=== PATIENT | female | born 1935 | race Caucasian/White ===

== ENCOUNTER 2018-01-22 13:06 | Emergency (ER) | payer MEDICARE, OTHER ==
[2018-01-22] MEDS ORDERED: Lidocaine/EPINEPHrine/Tetracaine Soln 1 ML TOP ONE (13:11)
--- NOTE | 2018-01-22 13:52 | CT ---
CT cervical spine Technique: Multiple axial sections through the cervical spine were obtained. Study was obtained from above C1 inferiorly to the bottom of T2. Reconstructed sagittal and coronal images were reviewed. Findings: Degenerative apophyseal change is seen most severe on the left side which is noted diffusely throughout the cervical spine. Mild disc space narrowing is noted at C3-C4, C4-C5 and C5-C6. Calcification is noted within the anterior annulus at C5-C6 which is felt to be degenerative in etiology. Vertebral bodies and posterior arches are intact. No fracture is seen. No bony central canal stenosis is noted. Slight bony spurring is noted into the neural foramina at C4-C5 and C5-C6 on the left side. Neural foramina are otherwise patent. No abnormal subluxation is seen. Impression: 1. Degenerative change as noted above. Nothing acute is appreciated on CT study of the cervical spine. Diagnostic code #2
--- NOTE | 2018-01-22 13:55 | CT ---
Head CT Technique: Multiple axial sections through the brain were obtained. Intravenous contrast was not utilized. Findings: Soft tissue swelling and soft tissue hematoma is noted within the posterior left frontal scalp. No underlying calvarial abnormality is seen. 2 small areas of hemorrhage are identified within the extra-axial space within the posterior right parietal region measuring 7 mm and 4 mm in size. No other areas of hemorrhage are seen within the brain parenchyma. Mild diminished density is noted within the periventricular white matter compatible with small vessel ischemic demyelination change. Ventricles along with basal cisterns and sulci over the convexities are mildly prominent. Visualized sinuses shows mucosal thickening inferiorly on the right side within the maxillary sinus. Impression: 1. 2 small areas of extra-axial hemorrhage within the posterior right parietal region measuring 7 mm and 4 mm. 2. Soft tissue swelling and hematoma within left posterior frontal scalp. 3. No other acute abnormality is seen. Diagnostic code #3
--- NOTE | 2018-01-22 15:04 | EDM.PDOC ---
ED HPI GENERAL MEDICAL PROBLEM - General Chief Complaint: Head Injury Stated Complaint: [facility] Time Seen by Provider: 01/22/18 13:13 Source of Information: Reports: Patient, EMS History Limitations: Reports: No Limitations - History of Present Illness INITIAL COMMENTS - FREE TEXT/NARRATIVE: The patient was in [place] and she was walking her dogs and she got her legs caught up in the leashes and she tripped and fell. She had no LOC but she did have a laceration to the left side of her head with edema. She denies a headache and she has no neck pain. She has no chest pain, shortness of breath, abdominal pain, nausea or vomiting. She has no numbness or weakness. Her tetanus is up to date. Onset: Sudden Duration: Minutes: Location: Reports: Head Improves with: Reports: None Worsens with: Reports: None Context: Reports: Activity (Her dogs tripped her) Associated Symptoms: Reports: No Other Symptoms Treatments SPECIAL CERTIFICATE DICTATOR: Reports: Cervical Collar Head Pain Score (Numeric/FACES): 1 - Related Data Allergies Allergy/AdvReac Type Severity Reaction Status Date / Time No Known Allergies Allergy Verified 01/22/18 13:36 Home Meds: Home Meds Aspirin [Halfprin] 81 mg PO DAILY 01/22/18 [History] Lisinopril 20 mg PO BID 01/22/18 [History] Past Medical History - Past Health History Medical/Surgical History: Denies Medical/Surgical History Social & Family History - Tobacco Use Smoking Status *Q: Never Smoker ED ROS GENERAL - Review of Systems Review Of Systems: See Below Constitutional: Reports: No Symptoms HEENT: Reports: Other (Laceration to the left side of her head) Respiratory: Reports: No Symptoms Cardiovascular: Reports: No Symptoms Endocrine: Reports: No Symptoms GI/Abdominal: Reports: No Symptoms : Reports: No Symptoms Musculoskeletal: Reports: No Symptoms ED EXAM, HEAD INJURY - Physical Exam Exam: See Below Exam Limited By: No Limitations General Appearance: Alert, No Apparent Distress Head: Other (Moderate amount of edema to the left side of the head with a laceration) Eyes: Bilateral Eye: EOMI Ears: Normal External Exam Nose: Normal Inspection Neck: Non-Tender, Normal Alignment, Normal Inspection Respiratory: No Respiratory Distress, Lungs Clear, Normal Breath Sounds ( ) Cardiovascular: Regular Rate, Rhythm, No Edema, No Murmur GI/Abdominal Exam: Soft, Non-Tender, No Organomegaly, No Mass Back Exam: Normal Inspection Extremities: Normal Inspection Neurologic: No Motor/Sensory Deficits, Alert, Oriented x 3 ED LACERATION/WOUND & PEDRO PROC - Laceration/Wound Repair Left Head Lac/wound length in cm: 2 Appearance: Subcutaneous, Stellate, Irregular Anesthetic Type: Topical (LET) Skin Prep: Saline Exploration/Debridement/Repair: Wound Explored, In a Bloodless Field, Explored to Base Closed with: Sutures Suture Size: 3-0 Suture Type: Interrupted, Simple, Other (Vicryl) Tetanus Status Addressed: Yes Complications: No Course - Vital Signs Last Recorded V/S: Last Vital Signs Temp 98.0 F 01/22/18 13:36 Pulse 101 H 01/22/18 13:36 Resp 18 01/22/18 13:36 BP 174/94 H 01/22/18 13:36 Pulse Ox 96 01/22/18 13:36 - Orders/Labs/Meds Meds: Medications Discontinued Medications Generic Name Dose Route Start Last Admin Trade Name Freq PRN Reason Stop Dose Admin Lidocaine/Tetracaine 2 ml 01/22/18 13:11 01/22/18 14:49 Let Soln TOP 01/22/18 13:12 2 ml ONETIME ONE Administration - Re-Assessments/Exams Free Text/Narrative Re-Assessment/Exam: 01/22/18 15:19 The patient had a c-collar on. I ordered a CT of her head and cervical spine. The CT of her head shows 2small areas of extra-axial hemorrhage within the posterior right parietal region measuring 7mm and 4mm. Soft tissue swelling and hematoma with left posterior frontal scalp. No other acute abnormality is seen. I called the neurosurgeon front office java developer at [facility] Dr Pope and he did not think there would be anything surgical to be done. I will suture her head laceration and discharge her home Departure - Departure Time of Disposition: 15:35 Disposition: Home, Self-Care 01 Condition: Good Clinical Impression: Laceration of scalp Qualifiers: Encounter type: initial encounter Qualified Code(s): S01.01XA - Laceration without foreign body of scalp, initial encounter Head injury Qualifiers: Encounter type: initial encounter Qualified Code(s): S09.90XA - Unspecified injury of head, initial encounter Intracranial hemorrhage following injury Qualifiers: Encounter type: initial encounter Loss of consciousness presence/duration: without LOC Qualified Code(s): S06.300A - 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 The sutures are absorbable and they will fall out in 1 week. Please return if you have a bad headache, nausea, vomiting, numbness or weakness.
== END 2018-01-22 15:57 | disposition home or self-care (01) ==
LOC: JD.ED 13:06
DX: S06.300A Unspecified focal traumatic brain injury without loss of consciousness, initial encounter (principal); S01.01XA Laceration without foreign body of scalp, initial encounter; S09.90XA Unspecified injury of head, initial encounter; W01.0XXA Fall on same level from slipping, tripping and stumbling without subsequent striking against object, initial encounter
CPT/HCPCS: 12001; 70450; 72125; 99284; A9270